=== PATIENT | male | born 1955 | race Caucasian/White ===

== ENCOUNTER 2020-10-17 14:59 | Emergency (ER) | payer OTHER, SELFPAY ==
[~2020-10-17] VITALS: Ht 180.3 cm; Wt 74.8 kg
[2020-10-17 15:02] VITALS: Ht 180.3 cm; Wt 74.8 kg
[2020-10-17 17:03] VITALS: BP 135/81
== END 2020-10-17 17:03 | disposition home or self-care (01) ==
LOC: ED 14:59
DX: U07.1 COVID-19 (principal); J12.89 Other viral pneumonia